=== PATIENT | male | born 1965 | race Caucasian/White ===

== ENCOUNTER 2018-08-21 12:55 | Emergency (ER) | payer MEDICARE ==
[~2018-08-21] VITALS: Ht 170.2 cm; Wt 100.0 kg
[~2018-08-21 12:55] MED LIST: ABILIFY 15MG TA15 MG PO; ASPIRIN 32325 MG/TAB PO; ATIVAN2 MG PO; BUDEPRION XL300 MG PO; DEPAKOTE 250MG250 MG PO; DEPAKOTE ER 50500 MG PO; DEPAKOTE500 MG PO; DESYREL 100MG100 MG PO; DESYREL 50MG50 MG; GEODON80 MG PO; POTASSIUM GLUC550 MG PO; VITAMIN D31000 IU PO; WELLBUTRIN XL150 MG PO; [UNRECOGNIZED DRUG - OTHER] IM
[2018-08-21 12:59] VITALS: TEMP 96.6
[2018-08-21] MEDS ORDERED: WELLBUTRIN XL300 M1 PO (13:14)
[2018-08-21] MEDS ORDERED: PROLIX10TA PO (13:15)
[2018-08-21] MEDS ORDERED: ABILIFMAIN300 IM (13:20)
[2018-08-21] MEDS ORDERED: ATIVAN 1MG T1 MG/TAB PO (13:20)
[2018-08-21 13:23] LABS: BASO % 0.5 % (0.0-2.0); EOS # 0.1 (0.0-0.7); EOS % 0.9 % (0-4.0); GRAN # 6.6 (1.4-6.5); GRAN % 76.6 % (42.2-75.2); HEMATOCRIT 44.4 % (42.0-52.0); HEMOGLOBIN 15.2 g/dl (13.5-18.0); LYMPH # 1.3 (1.2-3.4); LYMPH % 14.7 % (20.0-51.0); MEAN CELL VOLUME 90 fl (80.0-100.0); MEAN CORPUSCULAR HEMOGLOBIN 31 pg (27.0-31.0); MEAN CORPUSCULAR HGB CONC 34 g/dl (33.0-37.0); MEAN PLATELET VOLUME 9.7 fl (7.4-10.4); MONO # 0.6 (0.1-0.6); MONO % 6.7 % (1.7-9.3); PLATELET COUNT 331 K/mm3 (130-400); RED BLOOD COUNT 4.95 M/mm3 (4.20-5.60); REDCELL DISTRIBUTION WIDTH-CV 11.9 % (11.5-14.5)
[2018-08-21 13:30] LABS: ALANINE AMINOTRANSFERASE 93 U/L (21-72); ALBUMIN 4.7 gm/dL (3.5-5.0); ALKALINE PHOSPHATASE 71 U/L (50-136); ANION GAP 10 mmol/L (7-16); AST,SGOT 43 U/L (15-37); BILIRUBIN,TOTAL 0.4 mg/dL (0.0-1.0); BLOOD UREA NITROGEN 17 mg/dL (9-20); CALCIUM 9.7 mg/dL (8.4-10.2); CARBON DIOXIDE 28 mmol/L (22-30); CHLORIDE 103 mmol/L (98-107); CREATINE KINASE 246 U/L (55-170); CREATININE, serum 0.97 mg/dL (0.66-1.25); GLUCOSE 183 mg/dL (74-106); LIPASE 74 U/L (23-300); POTASSIUM 4.4 mmol/L (3.4-5.0); SODIUM 141 mmol/L (137-145); TOTAL PROTEIN 8.3 gm/dL (6.4-8.2)
[2018-08-21 13:45] LABS: TROPONIN-I < 0.012 ng/mL (0.000-0.034)
[2018-08-21 13:46] LABS: PROTHROMBIN TIME 11.2 SECONDS (9.7-12.8)
[2018-08-21 18:10] VITALS: BP 127/89; PULSE 98
== END 2018-08-21 18:10 | disposition short-term general hospital (02) ==
LOC: COL.ER 12:55 → ICU 13:56 → COL.ER 13:56
PROVIDERS: Emergency Medicine
DX: I20.0 Unstable angina (principal); I10 Essential (primary) hypertension; E78.5 Hyperlipidemia, unspecified; E66.9 Obesity, unspecified; F31.9 Bipolar disorder, unspecified; Z68.34 Body mass index [BMI] 34.0-34.9, adult
CPT/HCPCS: J1650; J2270; J2405; J3010; J7030

== ENCOUNTER → 2020-02-10 | Outpatient (CLI) | payer MEDICARE, MEDICAID ==
[~2020-02-10] MED LIST changes: +ABILIFMAIN300 IM; +ATIVAN 1MG T1 MG/TAB PO; +PROLIX10TA PO; +WELLBUTRIN XL300 M1 PO
[2020-02-10 16:43] LABS: CREATININE, serum 1.01 (0.66-1.25); POTASSIUM 4.1 mmol/L (3.4-5.0)
[2020-02-11 04:24] LABS: .FREE TESTOSTERONE CALC. MALE 32.93 pg/mL (())
== END ==
LOC: COL.LAB 11:57
PROVIDERS: Internal Medicine
DX: E11.69 Type 2 diabetes mellitus with other specified complication (principal); N52.9 Male erectile dysfunction, unspecified

== ENCOUNTER → 2020-06-01 | Outpatient (CLI) | payer MEDICARE, MEDICAID | LOC: COL.LAB 13:55 | DX: E11.69 Type 2 diabetes mellitus with other specified complication (principal); E29.1 Testicular hypofunction ==

== ENCOUNTER → 2020-10-04 | Outpatient (CLI) | payer MEDICARE, MEDICAID ==
[2020-10-04 10:43] LABS: COLLECTION METHOD CLEAN CATCH
[2020-10-04 10:47] LABS: HEMATOCRIT 41.7 % (42.0-52.0); HEMOGLOBIN 13.9 g/dl (13.5-18.0); MEAN CELL VOLUME 94 fl (80.0-100.0); MEAN CORPUSCULAR HEMOGLOBIN 31 pg (27.0-31.0); MEAN CORPUSCULAR HGB CONC 33 g/dl (33.0-37.0); MEAN PLATELET VOLUME 9.1 fl (7.4-10.4); PLATELET COUNT 404 K/mm3 (130-400); RED BLOOD COUNT 4.44 M/mm3 (4.20-5.60); REDCELL DISTRIBUTION WIDTH-CV 12.5 % (11.5-14.5)
[2020-10-04 10:59] LABS: MUCOUS Present /lpf; PH 5 (5-8); SQUAMOUS EPITHELIAL 0-2 /hpf; URINE APPEARANCE Clear; URINE BACTERIA None Seen /hpf; URINE BILIRUBIN Negative (NEGATIVE); URINE BLOOD Negative (NEGATIVE); URINE COLOR Yellow; URINE GLUCOSE Negative (NEGATIVE); URINE KETONE Negative (NEGATIVE); URINE LEUKOCYTE ESTERASE Negative (NEGATIVE); URINE NITRATE Negative (NEGATIVE); URINE PROTEIN(semi-quant) Negative (NEGATIVE); URINE RBC None Seen /hpf; URINE UROBILINOGEN Negative (NEGATIVE)
[2020-10-04 11:26] LABS: ALBUMIN 4.2 gm/dL (3.5-5.0); BILIRUBIN,TOTAL 0.3 mg/dL (0.0-1.0); CALCIUM 9.6 mg/dL (8.4-10.2); CHOLESTEROL RISK RATIO 4.6; CREATININE, serum 1.07 (0.66-1.25); POTASSIUM 5.1 mmol/L (3.4-5.0); TOTAL PROTEIN 7.6 gm/dL (6.4-8.2)
[2020-10-04 11:56] LABS: THYROID STIMULATING HORMONE 3.18 uIU/mL (0.465-4.680)
[2020-10-04 11:58] LABS: BAND 3 % (0-10); EOSINOPHIL 3 % (0-4); LYMPHOCYTE 25 % (20.0-51.0); NEUTROPHILS 62 % (42.0-75.2); PLATELET ESTIMATE NORMAL (NORMAL)
[2020-10-04 12:02] LABS: METAMYELOCYTE 1 % (0-0)
[2020-10-05 23:31] LABS: URINE MICROALBUMIN 0.8 mg/dL (0.0-1.7)
== END ==
LOC: COL.LAB 09:53
PROVIDERS: Internal Medicine
DX: Z12.5 Encounter for screening for malignant neoplasm of prostate (principal); E78.5 Hyperlipidemia, unspecified; E11.69 Type 2 diabetes mellitus with other specified complication

== ENCOUNTER → 2021-01-04 | Outpatient (CLI) | payer MEDICARE, MEDICAID ==
[2021-01-04 16:22] LABS: ALBUMIN 4.4 gm/dL (3.5-5.0); BILIRUBIN,TOTAL 0.3 mg/dL (0.0-1.0); CALCIUM 9.5 mg/dL (8.4-10.2); CREATININE, serum 1.26 (0.66-1.25); POTASSIUM 4.4 mmol/L (3.4-5.0)
== END ==
LOC: COL.LAB 15:28
PROVIDERS: Internal Medicine
DX: E11.69 Type 2 diabetes mellitus with other specified complication (principal)

== ENCOUNTER → 2021-01-24 | Outpatient (CLI) | payer MEDICARE, MEDICAID | LOC: COL.CARD 11:03 | DX: R55 Syncope and collapse (principal) ==

== ENCOUNTER 2021-02-17 16:18 | Emergency (ER) | payer MEDICARE, MEDICAID ==
[~2021-02-17] VITALS: Ht 170.2 cm; Wt 81.8 kg
[2021-02-17 16:26] VITALS: TEMP 98.3
[2021-02-17 16:51] LABS: HEMATOCRIT 43.6 % (42.0-52.0); HEMOGLOBIN 14.3 g/dl (13.5-18.0); MEAN CELL VOLUME 95 fl (80.0-100.0); MEAN CORPUSCULAR HEMOGLOBIN 31 pg (27.0-31.0); MEAN CORPUSCULAR HGB CONC 33 g/dl (33.0-37.0); PLATELET COUNT 331 K/mm3 (130-400); RED BLOOD COUNT 4.59 M/mm3 (4.20-5.60); REDCELL DISTRIBUTION WIDTH-CV 13.6 % (11.5-14.5)
[2021-02-17 16:59] LABS: INR 1.1 (0.8-3.0); PROTHROMBIN TIME 11.9 SECONDS (9.7-12.8)
[2021-02-17 17:01] LABS: ALANINE AMINOTRANSFERASE 58 U/L (4-49); ALBUMIN 4.4 gm/dL (3.5-5.0); ALKALINE PHOSPHATASE 70 U/L (50-136); ANION GAP 9 mmol/L (7-16); AST,SGOT 37 U/L (15-37); BILIRUBIN,TOTAL 0.3 mg/dL (0.0-1.0); BLOOD UREA NITROGEN 15 mg/dL (9-20); CALCIUM 9.5 mg/dL (8.4-10.2); CARBON DIOXIDE 24 mmol/L (22-30); CHLORIDE 102 mmol/L (98-107); GLUCOSE 82 mg/dL (74-106); POTASSIUM 4.9 mmol/L (3.4-5.0); SODIUM 135 mmol/L (137-145); TOTAL PROTEIN 7.6 gm/dL (6.4-8.2)
[2021-02-17 17:06] LABS: VALPROIC ACID (DEPAKENE) 52.8 ug/mL (50.0-100.0)
[2021-02-17 17:15] LABS: TROPONIN-I < 0.012 ng/mL (0.000-0.035)
[2021-02-17 17:38] LABS: ALCOHOL(ethanol),MEDICAL < 10 mg/dL; LIPASE 41 U/L (23-300)
[2021-02-17 17:39] LABS: C-REACTIVE PROTEIN < 0.5 mg/dL (0.0-0.9)
[2021-02-17 17:46] LABS: BAND 3 % (0-10); EOSINOPHIL 3 % (0-4); LYMPHOCYTE 30 % (20.0-51.0); NEUTROPHILS 62 % (42.0-75.2); NUCLEATED RED BLOOD CELL 1 (0-6); PLATELET ESTIMATE NORMAL (NORMAL)
[2021-02-17 18:05] LABS: COLLECTION METHOD CLEAN CATCH
[2021-02-17 18:11] LABS: PH 6 (5-8); SQUAMOUS EPITHELIAL 0-2 /hpf; URINE APPEARANCE Clear; URINE BACTERIA None Seen /hpf; URINE BILIRUBIN Negative (NEGATIVE); URINE BLOOD Negative (NEGATIVE); URINE COLOR Yellow; URINE GLUCOSE Negative (NEGATIVE); URINE KETONE Trace (NEGATIVE); URINE LEUKOCYTE ESTERASE Negative (NEGATIVE); URINE NITRATE Negative (NEGATIVE); URINE PROTEIN(semi-quant) Negative (NEGATIVE); URINE RBC 0-2 /hpf; URINE UROBILINOGEN Negative (NEGATIVE)
[2021-02-17 18:19] LABS: TRICYCLIC ANTIDEPRESS URINE POSITIVE
[2021-02-17 18:47] VITALS: BP 116/85; PULSE 84
== END 2021-02-17 18:50 | disposition home or self-care (01) ==
LOC: COL.ER 16:18
PROVIDERS: Emergency Medicine
DX: G31.89 Other specified degenerative diseases of nervous system (principal); F43.20 Adjustment disorder, unspecified; E86.0 Dehydration; E11.9 Type 2 diabetes mellitus without complications; E78.5 Hyperlipidemia, unspecified; F39 Unspecified mood [affective] disorder; F31.9 Bipolar disorder, unspecified; I10 Essential (primary) hypertension; Z88.8 Allergy status to other drugs, medicaments and biological substances; Z88.7 Allergy status to serum and vaccine; Z87.891 Personal history of nicotine dependence
CPT/HCPCS: J7030

== ENCOUNTER 2021-02-20 17:43 | Emergency (ER) | payer MEDICARE, MEDICAID ==
[~2021-02-20] VITALS: Ht 177.8 cm; Wt 104.5 kg
[2021-02-20 17:46] VITALS: TEMP 98.5
[2021-02-20 17:57] LABS: BASO # 0.1 (0.0-0.2); BASO % 0.6 % (0.0-2.0); EOS # 0.5 (0.0-0.7); EOS % 4.3 % (0-4.0); GRAN # 7.2 (1.4-6.5); GRAN % 60.3 % (42.2-75.2); HEMATOCRIT 39.9 % (42.0-52.0); LYMPH # 3.1 (1.2-3.4); LYMPH % 25.6 % (20.0-51.0); MEAN CELL VOLUME 96 fl (80.0-100.0); MEAN CORPUSCULAR HEMOGLOBIN 31 pg (27.0-31.0); MEAN CORPUSCULAR HGB CONC 33 g/dl (33.0-37.0); MEAN PLATELET VOLUME 9.2 fl (7.4-10.4); MONO # 0.9 (0.1-0.6); MONO % 7.8 % (1.7-9.3); PLATELET COUNT 284 K/mm3 (130-400); RED BLOOD COUNT 4.17 M/mm3 (4.20-5.60); REDCELL DISTRIBUTION WIDTH-CV 13.6 % (11.5-14.5)
[2021-02-20 18:09] LABS: ALANINE AMINOTRANSFERASE 42 U/L (4-49); ALBUMIN 4.2 gm/dL (3.5-5.0); ALCOHOL(ethanol),MEDICAL < 10 mg/dL; ALKALINE PHOSPHATASE 59 U/L (50-136); ANION GAP 10 mmol/L (7-16); AST,SGOT 33 U/L (15-37); BILIRUBIN,TOTAL 0.3 mg/dL (0.0-1.0); BLOOD UREA NITROGEN 16 mg/dL (9-20); CALCIUM 8.8 mg/dL (8.4-10.2); CARBON DIOXIDE 23 mmol/L (22-30); CHLORIDE 106 mmol/L (98-107); CREATININE, serum 1.07 (0.66-1.25); GLUCOSE 80 mg/dL (74-106); SODIUM 139 mmol/L (137-145); TOTAL PROTEIN 7.3 gm/dL (6.4-8.2)
[2021-02-20 18:31] LABS: COLLECTION METHOD CLEAN CATCH
[2021-02-20 18:45] LABS: PH 6 (5-8); SQUAMOUS EPITHELIAL None Seen /hpf; URINE APPEARANCE Clear; URINE BACTERIA None Seen /hpf; URINE BILIRUBIN Negative (NEGATIVE); URINE BLOOD Negative (NEGATIVE); URINE COLOR Yellow; URINE GLUCOSE Negative (NEGATIVE); URINE KETONE Negative (NEGATIVE); URINE LEUKOCYTE ESTERASE Negative (NEGATIVE); URINE NITRATE Negative (NEGATIVE); URINE PROTEIN(semi-quant) Negative (NEGATIVE); URINE RBC 0-2 /hpf; URINE UROBILINOGEN Negative (NEGATIVE)
[2021-02-20 19:07] LABS: TRICYCLIC ANTIDEPRESS URINE POSITIVE
[2021-02-20 22:26] VITALS: BP 141/80; PULSE 92
== END 2021-02-20 22:28 | disposition home or self-care (01) ==
LOC: COL.ER 17:43
PROVIDERS: Nurse Practitioner
DX: R41.82 Altered mental status, unspecified (principal); F31.9 Bipolar disorder, unspecified; Z87.891 Personal history of nicotine dependence; Z88.7 Allergy status to serum and vaccine; Z88.8 Allergy status to other drugs, medicaments and biological substances; Z79.899 Other long term (current) drug therapy
CPT/HCPCS: J7030

== ENCOUNTER 2022-03-26 22:45 | Emergency (ER) | payer MEDICARE, MEDICAID ==
[~2022-03-26] VITALS: Ht 170.2 cm; Wt 83.8 kg
[2022-03-26 23:06] VITALS: BP 171/91; PULSE 107; TEMP 98.7
== END 2022-03-27 00:14 | disposition left against medical advice (07) ==
LOC: COL.ER 22:45
DX: F91.9 Conduct disorder, unspecified (principal); R68.84 Jaw pain; Z28.310 Unvaccinated for COVID-19

== ENCOUNTER → 2023-08-02 | Emergency (ER) | payer MEDICARE, MEDICAID ==
[~2023-08-02] MED LIST changes: +GLUCOPHAGE XR500 M1 PO; +LIPITOR20 MG PO; +PRINIVIL10 MG PO; +SAPHRIS5 MG SL; +VRAYLAR6 MG PO
== END ==
LOC: COL.ER 10:43
DX: Z13.89 Encounter for screening for other disorder (principal); F31.9 Bipolar disorder, unspecified